=== PATIENT | male | born 1940 | race Caucasian/White ===

== ENCOUNTER → 2016-10-02 | Outpatient (CLI) | payer OTHER ==
[~2016-10-02] MED LIST: AMLODIPINE BESY10 MG PO; CHLORTHALIDONE25 MG PO; COQ1050 MG PO; ENDOCET 5-3251 EAC1 PO; LO-DOSE ASPIRIN81 M2 PO; MELATONIN5 M1 PO; RED YEAST RICE600 MG PO; SLEEP AID25 M2 PO; TOPROL XL50 MG PO; VITAMIN B12 100MCG PO; VITAMIN C500 M1 PO; VITAMIN D-32000 UNI2 PO; ZESTRIL30 MG PO
[2016-10-02 14:05] LABS: HEMATOCRIT 41.4 % (38.0-50.0); MCH 30.5 PG (29.0-34.0); MCHC 32.6 G/DL (30.0-36.0); MCV 93.7 FL (86-99); MEAN PLAT.VOLUME 10.2 uM^3 (9.0-12.4); PLATELET COUNT 330 K/uL (156-360); RBC DIS.WIDTH-CV 13.7 % (11.8-14.6); RBC DIS.WIDTH-SD 46.8 % (39-53); RED BLOOD COUNT 4.42 M/uL (4.00-5.50); WHITE BLOOD COUNT 15.5 K/uL (4.1-10.2)
[2016-10-02 15:12] LABS: ABS NEUTROPHIL COUNT 9.7; ANISOCYTOSIS 1+; ATYPICAL LYMPHOCYTE 15.9 %; BAND NEUTROPHILS 0.9 % (0-8.0); EOSINOPHIL ABS CT 0; LYMPHOCYTES 19.6 % (15.0-45.0); MACROCYTES 1+; POLYCHROMASIA 1+; SEG.NEUTROPHILS 61.7 % (46.0-76.0); SMUDGE CELLS 23.4; TEAR DROP CELLS 1+
[2016-10-05 14:52] LABS: Flow Number of Markers 22 (()); Flow Spec Viability 97 % (()); Flow Specimen Type BONE MARROW (())
== END | disposition home or self-care (01) ==
LOC: JMC 08:00
PROVIDERS: Internal Medicine Medical Oncology
PROC: 07DR3ZX Extraction of Iliac Bone Marrow, Percutaneous Approach, Diagnostic (ICD-10-PCS; principal; 2016-10-02)
DX: C91.10 Chronic lymphocytic leukemia of B-cell type not having achieved remission (principal)
CPT/HCPCS: 38221; 85025; 85999; 88184 90; 88185 90; 88189 90

== ENCOUNTER → 2017-11-04 | Outpatient (CLI) | payer OTHER ==
[~2017-11-04] MED LIST changes: +NEURONTIN100 MG PO; +PROSCAR5 MG PO; +TUMS500 MG PO
[2017-11-04 08:15] LABS: HEMOGLOBIN 12.7 G/DL (12.5-16.6); MCH 31.1 PG (29.0-34.0); MCHC 32.6 G/DL (30.0-36.0); MCV 95.6 FL (86-99); RBC DIS.WIDTH-CV 14.3 % (11.8-14.6); RBC DIS.WIDTH-SD 50.4 % (39-53); RED BLOOD COUNT 4.08 M/uL (4.00-5.50); WHITE BLOOD COUNT 13.6 K/uL (4.1-10.2)
[2017-11-04 08:30] LABS: PTT 30.6 SEC (25-37)
[2017-11-04 08:52] LABS: PLAT.SUFFICIENCY ADEQUATE; PLATELET COUNT 355 K/uL (156-360)
== END | disposition home or self-care (01) ==
LOC: EDSTATUS 10-14 08:00 → OPR 10-14 08:00
PROVIDERS: Internal Medicine Medical Oncology
PROC: 0BDC4ZX Extraction of Right Upper Lung Lobe, Percutaneous Endoscopic Approach, Diagnostic (ICD-10-PCS; principal; 2017-11-04)
DX: C78.01 Secondary malignant neoplasm of right lung (principal); C91.90 Lymphoid leukemia, unspecified not having achieved remission; C83.10 Mantle cell lymphoma, unspecified site; C85.80 Other specified types of non-Hodgkin lymphoma, unspecified site; D47.2 Monoclonal gammopathy; I12.9 Hypertensive chronic kidney disease with stage 1 through stage 4 chronic kidney disease, or unspecified chronic kidney disease; N18.3 Chronic kidney disease, stage 3 (moderate); K21.9 Gastro-esophageal reflux disease without esophagitis; J45.909 Unspecified asthma, uncomplicated; I25.2 Old myocardial infarction
CPT/HCPCS: 71045; 77012; 85027; 85610; 85730; 88305; 88341 TC; 88342 TC

== ENCOUNTER → 2017-11-27 | Outpatient (CLI) | payer MEDICARE, OTHER | END | disposition home or self-care (01) | LOC: CDC 15:13 | DX: Z01.810 Encounter for preprocedural cardiovascular examination (principal); C34.90 Malignant neoplasm of unspecified part of unspecified bronchus or lung | CPT/HCPCS: 93000 ==

== ENCOUNTER → 2017-11-30 | Outpatient (CLI) | payer OTHER ==
[~2017-11-30] MED LIST changes: +COLACE100 MG PO; +HYDROCODON-ACE1 EAC7 PO
[2017-11-30 10:15] LABS: BASE EXCESS -3.4 mEq/L (-3 to +3); BICARBONATE 20.1 mEq/L (22-26); CARBOXY HGB 1.7 % (0-5); COMMENTS - BLOOD GASES NAC+; FI02 21 %; METHEMOGLOBIN 1.2 % (0-1.5); PCO2 31 mm Hg (35-45); PO2 79 mm Hg (80-100); SITE RR; pH 7.42 (7.35-7.45)
== END | disposition home or self-care (01) ==
LOC: RES 09:59
PROVIDERS: Thoracic Surgery (Cardiothoracic Vascular Surgery)
DX: J98.4 Other disorders of lung (principal); R94.2 Abnormal results of pulmonary function studies
CPT/HCPCS: 36600; 82803; 94060; 94726; 94729

== ENCOUNTER 2017-12-03 06:21 | Day surgery (SDC) | payer OTHER ==
[~2017-12-03] VITALS: Ht 179.1 cm; Wt 73.5 kg
[~2017-12-03 06:21] MED LIST changes: -COLACE100 MG PO; -HYDROCODON-ACE1 EAC7 PO
[2017-12-03 07:11] VITALS: BP 160/83
[2017-12-03] MEDS ORDERED: HYDROCODON-ACE1 EAC7 PO (10:27)
[2017-12-03] MEDS ORDERED: COLACE100 MG PO (10:27)
[2017-12-03 11:00] VITALS: BP 156/70
[2017-12-03 11:43] VITALS: BP 152/70
== END 2017-12-03 11:43 | disposition home or self-care (01) ==
LOC: SDC
PROVIDERS: Thoracic Surgery (Cardiothoracic Vascular Surgery)
PROC: 07B74ZX Excision of Thorax Lymphatic, Percutaneous Endoscopic Approach, Diagnostic (ICD-10-PCS; principal; 2017-12-03)
DX: C34.11 Malignant neoplasm of upper lobe, right bronchus or lung (principal); J43.9 Emphysema, unspecified; I12.9 Hypertensive chronic kidney disease with stage 1 through stage 4 chronic kidney disease, or unspecified chronic kidney disease; N18.3 Chronic kidney disease, stage 3 (moderate); Z87.891 Personal history of nicotine dependence
CPT/HCPCS: 85610; 86850; 86900; 86901; 87641; 88305; J0330; J0690; J1100; J2405; J2710; J3010; J7643

== ENCOUNTER 2018-01-06 21:37 | Inpatient (IN) | payer OTHER ==
[~2018-01-06] VITALS: Ht 175.3 cm; Wt 70.1 kg
[~2018-01-06 21:37] MED LIST changes: +COLACE100 MG PO; +HYDROCODON-ACE1 EAC7 PO
[2018-01-07] MEDS ORDERED: MELATONIN2.5 MG/10 PO (07:04)
[2018-01-07 07:12] VITALS: BP 172/74
[2018-01-07 07:18] LABS: PTT 30.7 SEC (25-37)
[2018-01-07 19:00] VITALS: BP 122/68
[2018-01-07 20:00] VITALS: BP 124/67
[2018-01-07 21:00] VITALS: BP 98/48
[2018-01-07 22:00] VITALS: BP 102/51
[2018-01-07 23:00] VITALS: BP 116/55
[2018-01-08] VITALS (21 sets, daily range): BP systolic 86–147; BP diastolic 39–72
[2018-01-08 05:26] LABS: HEMATOCRIT 31.2 % (38.0-50.0); MCH 31.2 PG (29.0-34.0); MCHC 32.4 G/DL (30.0-36.0); MCV 96.3 FL (86-99); PLATELET COUNT 232 K/uL (156-360); RBC DIS.WIDTH-CV 13.7 % (11.8-14.6); RBC DIS.WIDTH-SD 48.6 % (39-53); WHITE BLOOD COUNT 16.3 K/uL (4.1-10.2)
[2018-01-08 05:46] LABS: HEMOGLOBIN 10.1 G/DL (12.5-16.6); RED BLOOD COUNT 3.24 M/uL (4.00-5.50)
[2018-01-08 06:37] LABS: CHLORIDE 106 MEQ/L (99-109); CREATININE 1.7 MG/DL (0.6-1.3); GFR ESTIMATE (CALCULATED) 42 mL/min/ (58.99-99999); GLUCOSE 124 mg/dL (70-99); POTASSIUM 4.8 MEQ/L (3.7-5.4); SODIUM 136 MEQ/L (136-147); UREA NITROGEN (BUN) 20 mg/dL (9-23)
[2018-01-08 12:56] LABS: APPEARANCE SL.HAZY ((CLEAR)); BILIRUBIN NEGATIVE; BLOOD LARGE; COLOR YELLOW ((YELLOW)); GLUCOSE (STRIP) NEGATIVE; KETONES NEGATIVE; LEUKOCYTES SMALL; NITRITE NEGATIVE; PROTEIN (STRIP) 30; SPECIFIC GRAVITY 1.025 (1.000-1.030); UROBILINOGEN 0.2 MG/DL (0.2-1.0)
[2018-01-08 13:45] LABS: BACTERIA RARE /HPF; EPITHELIAL CELLS NONE SEEN /HPF; HYALINE CASTS 0-5 /LPF; MUCUS TRACE /LPF; RED BLOOD CELLS TNTC /HPF (0-5); WHITE BLOOD CELLS 30-40 /HPF (0-5)
[2018-01-09 03:41] VITALS: BP 127/60
[2018-01-09 05:32] LABS: BASOPHIL (%) 0.3 % (0-1); EOSINOPHIL (%) 0.7 % (0-5); EOSINOPHIL COUNT 0.1 K/uL (0-0.3); HEMOGLOBIN 9.4 G/DL (12.5-16.6); IMMATURE GRANULOCYTE (%) 0.4 % (0.0-0.7); LYMPHOCYTE (%) 35.1 % (15-42); MCH 30.7 PG (29.0-34.0); MCHC 31.3 G/DL (30.0-36.0); MONOCYTE (%) 5.9 % (3-12); MONOCYTE COUNT 0.8 K/uL (0-0.8); NEUTROPHIL (%) 57.6 % (45-76); NEUTROPHIL COUNT 8.3 K/uL (1.8-6.4); PLATELET COUNT 211 K/uL (156-360); RBC DIS.WIDTH-CV 14.2 % (11.8-14.6); RBC DIS.WIDTH-SD 50.4 % (39-53); RED BLOOD COUNT 3.06 M/uL (4.00-5.50); WHITE BLOOD COUNT 14.3 K/uL (4.1-10.2)
[2018-01-09 05:58] LABS: CHLORIDE 111 MEQ/L (99-109); CREATININE 1.6 MG/DL (0.6-1.3); GFR ESTIMATE (CALCULATED) 45 mL/min/ (58.99-99999); GLUCOSE 96 mg/dL (70-99); MAGNESIUM 1.5 mg/dl (1.3-2.7); PHOSPHORUS 2.7 mg/dL (2.5-4.9); POTASSIUM 4.4 MEQ/L (3.7-5.4); SODIUM 138 MEQ/L (136-147); UREA NITROGEN (BUN) 17 mg/dL (9-23)
[2018-01-09 07:56] VITALS: BP 156/71
[2018-01-09 11:21] VITALS: BP 141/63
[2018-01-09 17:35] VITALS: BP 143/79
[2018-01-09 19:34] VITALS: BP 149/70
[2018-01-09 23:29] VITALS: BP 151/69
[2018-01-10 02:54] VITALS: BP 122/67
[2018-01-10 05:22] LABS: BASOPHIL (%) 0.3 % (0-1); EOSINOPHIL (%) 1.5 % (0-5); EOSINOPHIL COUNT 0.2 K/uL (0-0.3); HEMATOCRIT 31.9 % (38.0-50.0); HEMOGLOBIN 10.1 G/DL (12.5-16.6); IMMATURE GRANULOCYTE (%) 0.4 % (0.0-0.7); LYMPHOCYTE (%) 28.3 % (15-42); LYMPHOCYTE COUNT 3.9 K/uL (1.0-2.8); MCHC 31.7 G/DL (30.0-36.0); MCV 97.9 FL (86-99); MONOCYTE (%) 6.3 % (3-12); MONOCYTE COUNT 0.9 K/uL (0-0.8); NEUTROPHIL (%) 63.2 % (45-76); NEUTROPHIL COUNT 8.7 K/uL (1.8-6.4); PLATELET COUNT 229 K/uL (156-360); RBC DIS.WIDTH-SD 50.2 % (39-53); RED BLOOD COUNT 3.26 M/uL (4.00-5.50); WHITE BLOOD COUNT 13.7 K/uL (4.1-10.2)
[2018-01-10 05:50] LABS: CHLORIDE 110 MEQ/L (99-109); CREATININE 1.3 MG/DL (0.6-1.3); GFR ESTIMATE (CALCULATED) 57 mL/min/ (58.99-99999); GLUCOSE 105 mg/dL (70-99); POTASSIUM 4.2 MEQ/L (3.7-5.4); SODIUM 139 MEQ/L (136-147); UREA NITROGEN (BUN) 12 mg/dL (9-23)
[2018-01-10 07:08] VITALS: BP 138/81
[2018-01-10 11:30] VITALS: BP 136/74
[2018-01-10 16:10] VITALS: BP 131/59
[2018-01-10 19:55] VITALS: BP 165/74
[2018-01-10 23:12] VITALS: BP 160/72
[2018-01-11 03:00] VITALS: BP 142/69
[2018-01-11 05:02] LABS: BASOPHIL (%) 0.4 % (0-1); BASOPHIL COUNT 0.1 K/uL (0-0.1); EOSINOPHIL (%) 1.9 % (0-5); EOSINOPHIL COUNT 0.3 K/uL (0-0.3); HEMATOCRIT 29.8 % (38.0-50.0); HEMOGLOBIN 9.5 G/DL (12.5-16.6); IMMATURE GRANULOCYTE (%) 0.6 % (0.0-0.7); LYMPHOCYTE (%) 30.9 % (15-42); LYMPHOCYTE COUNT 4.4 K/uL (1.0-2.8); MCH 30.8 PG (29.0-34.0); MCHC 31.9 G/DL (30.0-36.0); MCV 96.8 FL (86-99); MONOCYTE (%) 5.5 % (3-12); MONOCYTE COUNT 0.8 K/uL (0-0.8); NEUTROPHIL (%) 60.7 % (45-76); NEUTROPHIL COUNT 8.6 K/uL (1.8-6.4); PLATELET COUNT 254 K/uL (156-360); RBC DIS.WIDTH-CV 13.8 % (11.8-14.6); RED BLOOD COUNT 3.08 M/uL (4.00-5.50); WHITE BLOOD COUNT 14.1 K/uL (4.1-10.2)
[2018-01-11 05:58] LABS: CHLORIDE 106 MEQ/L (99-109); CREATININE 1.1 MG/DL (0.6-1.3); GFR ESTIMATE (CALCULATED) > 59 mL/min/ (58.99-99999); GLUCOSE 103 mg/dL (70-99); SODIUM 138 MEQ/L (136-147); UREA NITROGEN (BUN) 10 mg/dL (9-23)
[2018-01-11 07:07] VITALS: BP 148/71
[2018-01-11 11:06] VITALS: BP 147/89
[2018-01-11 15:45] VITALS: BP 142/64
[2018-01-11 20:44] VITALS: BP 142/69
[2018-01-12 00:52] VITALS: BP 148/67
[2018-01-12 04:52] VITALS: BP 139/65
[2018-01-12 07:13] VITALS: BP 158/72
[2018-01-12 11:48] VITALS: BP 161/72
[2018-01-12 15:37] VITALS: BP 136/65
[2018-01-12 20:24] VITALS: BP 151/70
[2018-01-13 00:52] VITALS: BP 153/72
[2018-01-13 04:55] VITALS: BP 163/87
[2018-01-13 05:50] LABS: CHLORIDE 101 MEQ/L (99-109); CREATININE 1.2 MG/DL (0.6-1.3); GFR ESTIMATE (CALCULATED) > 59 mL/min/ (58.99-99999); GLUCOSE 114 mg/dL (70-99); HEMATOCRIT 28.4 % (38.0-50.0); HEMOGLOBIN 9.3 G/DL (12.5-16.6); MCH 31.3 PG (29.0-34.0); MCHC 32.7 G/DL (30.0-36.0); MCV 95.6 FL (86-99); PLATELET COUNT 297 K/uL (156-360); POTASSIUM 4.1 MEQ/L (3.7-5.4); RBC DIS.WIDTH-CV 13.7 % (11.8-14.6); RBC DIS.WIDTH-SD 48.2 % (39-53); RED BLOOD COUNT 2.97 M/uL (4.00-5.50); SODIUM 135 MEQ/L (136-147); UREA NITROGEN (BUN) 12 mg/dL (9-23); WHITE BLOOD COUNT 11.1 K/uL (4.1-10.2)
[2018-01-13 08:10] VITALS: BP 176/83
[2018-01-13 11:41] VITALS: BP 174/79
[2018-01-13 15:34] VITALS: BP 151/69
[2018-01-13] MEDS ORDERED: HYDROCODON-ACE1 EAC7 PO (17:58)
[2018-01-13] MEDS ORDERED: DOCUSATE SODIU100 MG PO (17:58)
[2018-01-13 19:16] LABS: APPEARANCE CLEAR ((CLEAR)); BILIRUBIN NEGATIVE; BLOOD MODERATE; COLOR STRAW ((YELLOW)); GLUCOSE (STRIP) NEGATIVE; KETONES 20; LEUKOCYTES NEGATIVE; NITRITE NEGATIVE; PROTEIN (STRIP) NEGATIVE; SPECIFIC GRAVITY 1.006 (1.000-1.030); UROBILINOGEN 0.2 MG/DL (0.2-1.0)
[2018-01-13 19:59] LABS: BACTERIA RARE /HPF; EPITHELIAL CELLS NONE SEEN /HPF; MUCUS NONE SEEN /LPF; RED BLOOD CELLS 40-50 /HPF (0-5); UCUL ADDED? NO; WHITE BLOOD CELLS 0-5 /HPF (0-5)
== END 2018-01-13 19:30 | disposition home health service (06) | DRG 163 ==
LOC: ENRESERV 21:37 → CANRESERV 21:37 → 4WEST 01-07 06:31 → 2SOUTH 01-07 06:31 → 4EAST 01-07 06:31 → ENRESERV 01-07 06:49 → 2SOUTH 01-07 10:17 → 4WEST 01-07 15:00 → 2SOUTH 01-07 15:30 → ENRESERV 01-07 16:36 → 4WEST 01-07 17:31 → ENRESERV 01-07 22:31 → CANRESERV 01-07 22:34 → 4WEST 01-07 23:14 → ENRESERV 01-08 20:46 → 4EAST 01-08 22:37
PROVIDERS: Internal Medicine Medical Oncology; Internal Medicine Nephrology; Thoracic Surgery (Cardiothoracic Vascular Surgery)
PROC: 07B70ZX Excision of Thorax Lymphatic, Open Approach, Diagnostic (ICD-10-PCS; principal; 2018-01-07)
PROC: 0BTC0ZZ Resection of Right Upper Lung Lobe, Open Approach (ICD-10-PCS; principal; 2018-01-07)
PROC: 0W9930Z Drainage of Right Pleural Cavity with Drainage Device, Percutaneous Approach (ICD-10-PCS; principal; 2018-01-07)
PROC: 3E0R3BZ Introduction of Anesthetic Agent into Spinal Canal, Percutaneous Approach (ICD-10-PCS; 2018-01-07)
PROC: 00HU33Z Insertion of Infusion Device into Spinal Canal, Percutaneous Approach (ICD-10-PCS; 2018-01-07)
DX: C34.11 Malignant neoplasm of upper lobe, right bronchus or lung (principal); N17.0 Acute kidney failure with tubular necrosis; E86.0 Dehydration; I48.91 Unspecified atrial fibrillation; I47.1 Supraventricular tachycardia; N99.89 Other postprocedural complications and disorders of genitourinary system; R33.8 Other retention of urine; K59.00 Constipation, unspecified; N40.1 Benign prostatic hyperplasia with lower urinary tract symptoms; J44.9 Chronic obstructive pulmonary disease, unspecified; I12.9 Hypertensive chronic kidney disease with stage 1 through stage 4 chronic kidney disease, or unspecified chronic kidney disease; N18.3 Chronic kidney disease, stage 3 (moderate); K21.9 Gastro-esophageal reflux disease without esophagitis; Z79.82 Long term (current) use of aspirin; Z87.891 Personal history of nicotine dependence
CPT/HCPCS: 71045; 71046; 76770; 80048; 81003; 83735; 84100; 85025; 85027; 85610; 85730; 86850; 86900; 86901; 86920; 87040; 87641; 88305; 88309; 88313; 88342 TC; 93005; 94010; 94640; 94640 76; 94760; 94799; 97530 GP; 99202; J0690; J1100; J1170; J1644; J2405; J2710; J3010; J7030; J7040; J7050; J7643; S0020

== ENCOUNTER → 2018-01-29 | Outpatient (CLI) | payer OTHER ==
[~2018-01-29] VITALS: Ht 179.1 cm; Wt 68.1 kg
[~2018-01-29] MED LIST changes: +DOCUSATE SODIU100 MG PO; +MELATONIN2.5 MG/10 PO
[2018-01-29 13:15] VITALS: BP 110/64
== END | disposition home or self-care (01) ==
LOC: IVINF 12:37
DX: E86.0 Dehydration (principal)
CPT/HCPCS: 96360; 96361; J7030